=== PATIENT | male | born 1960 | race Hispanic/Latino ===

== ENCOUNTER 2016-06-13 15:32 | Emergency (ER) | payer OTHER ==
[2016-06-13 16:05] VITALS: BP 157/102
--- NOTE | 2016-06-13 18:48 | Emergency Department Report ---
Entered by RIGOBERTO COOK, acting as scribe for STEVE ISAAC PA. ED Fall HPI - General Chief Complaint: Fall Stated Complaint: FALL/ ELBOW PAIN Time Seen by Provider: 06/13/16 17:55 Source: patient Mode of arrival: Ambulatory Limitations: No Limitations - History of Present Illness Initial Comments: 55 y/o male presents to ED c/o left elbow pain secondary to fall while mopping his floor earlier today. He states he landed on his left arm which flexed, and heard a popping sound. He reports initial pain and tenderness with sensation of stiff arm with inflammation and numbness to his fingers in his left hand. He admits to administering two tablets of Tylenol immediately after with improved symptoms in ED. He denies Hx of HTN but endorses consumption of three cups of coffee for lunch today. Pt notes Hx of brain surgery by Dr. Jian Matute at [facility] in 2005, with no complications recently but noting minor right side lower extremity deficits since. He has no additional complaints. -: Sudden, This afternoon When Fall Occurred: just prior to arrival Fall Witnessed: no Place Fall Occurred: work Loss of Consciousness: none Prolonged Down Time?: no Symptoms Prior to Fall: none (patient tripped) Location: other (left elbow) Location - Extremities: Left: Elbow (pain, popping sensation) Severity: mild Quality: other (popping, stiff) Context: tripped/slipped Associated Symptoms: denies (any additional complaints), numbness (left fingers) - Related Data Home Medications Medication Instructions Recorded Confirmed Last Taken No Known Home Medications [No 06/13/16 06/13/16 Unknown Reported Home Medications] Allergies Allergy/AdvReac Type Severity Reaction Status Date / Time No Known Allergies Allergy Unverified 06/13/16 16:04 ED Review of Systems Comment: All other systems reviewed and negative Musculoskeletal: arthralgia (left elbow). denies: other (change in range of motion) Neurological: numbness (to left fingers). denies: other (LOC) ED Past Medical Hx - Past Medical History Previous Medical History?: Yes Hx Hypertension: Yes Additional medical history: Menigioma - Surgical History Past Surgical History?: Yes Additional Surgical History: Brain surgery 2005 - Social History Smoking Status: Never Smoker Substance Use Type: Alcohol, Prescribed - Medications Home Medications: Home Medications Medication Instructions Recorded Confirmed Last Taken Type No Known Home Medications [No 06/13/16 06/13/16 Unknown History Reported Home Medications] ED Physical Exam - General Limitations: No Limitations - Other Other exam information: GENERAL: Patient is alert and oriented x 3. No apparent distress, normal gait, atraumatic. HEAD: Head is normocephalic and atraumatic. EYES: Extraocular movements are intact. Pupils are equal, round, and reactive to light and accommodation. EARS: Symmetrical, atraumatic, non tender, ear canal clear with moderate cerumen , tympanic membrane non inflamed. Gross auditory nml bilaterally. NOSE: Nose symmetrical, nontender. Nares appeared normal. MOUTH:Mouth is well hydrated and without lesions. Mucous membranes are moist. Uvula midline. Tongue not elevated. Posterior pharynx clear, no exudate or lesions. Tonsils are not erythematous or swollen. Patent airway. NECK: Supple. Non edematous, no carotid bruits. No lymphadenopathy or thyromegaly. LUNGS: Symmetrical with respiration. No wheezing, rales or crackles, CTAB. HEART: Regular rate and rhythm with normal S1/S2 present. No murmurs, rubs, or gallops. EXTREMITIES/MUSCULOSKELETAL: No cyanosis, clubbing, rash, lesions or edema. Full ROM bilaterally. UE/LE Pulses 2+ bilaterally. UE 5+ strength bilaterally, symmetrical. Patient has full range of motion including pronation and supination in left elbow, mild erythema noted, no crepitus. SKIN: Warm and dry. No lesions, ulceration or induration present PSYCHIATRIC: Mood is congruent with affect. Denies suicidal or homicidal ideations. ED Course Vital Signs 06/13/16 16:00 Temperature 98.8 F Pulse Rate 71 Respiratory 20 Rate Blood Pressure 157/102 O2 Sat by Pulse 97 Oximetry ED Medical Decision Making - Medical Decision Making 55 year old male patient presents today with left elbow pain secondary to fall while mopping his floor at work, tripping due to wearing large hiking boots. X-ray reveals no acute fracture or bony abnormalities. Patient is in no acute distress at this time and is stable for discharge. He will be discharged home with instructions to administer Acetaminophen and Motrin for pain relief and is encouraged to follow up with a primary care provider. He is encouraged to return to the emergency room for any worsening symptoms. ED Disposition Clinical Impression: Elbow pain, left Disposition: DISCHARGED TO HOME OR SELFCARE Is pt being admited?: No Does the pt Need Aspirin: No Condition: Stable Instructions: Elbow Sprain (ED) Additional Instructions: You are advised to take Acetaminophen or Ibuprofen for relief of pain or any swelling that may arise. Follow up with your primary care provider for any worsening symptoms. Referrals: PRIMARY CARE,MD [Primary Care Provider] - 3-5 Days Forms: Work/School Release Form(ED) This documentation as recorded by the JOEY gaviria AHSAN,accurately reflects the service I personally performed and the decisions made by ,STEVE ISAAC PA.
--- NOTE | 2016-06-14 07:45 | XRay Report ---
LEFT ELBOW, 3 views: History: Left elbow pain after fall There is suggestion of a small joint effusion on the lateral image. There is normal bone mineralization. No obvious acute osseous injury or joint pathology. IMPRESSION: Small joint effusion. No bony abnormality is appreciated. This could indicate an occult fracture or osteochondral defect. Correlate with the patient and consider followup.
== END 2016-06-13 18:32 | disposition home or self-care (01) ==
LOC: ED 15:32
DX: M25.522 Pain in left elbow (principal); I10 Essential (primary) hypertension